=== PATIENT | male | born 1975 | race African-American/Black ===

== ENCOUNTER 2024-01-28 06:29 | Day surgery (SDC) | payer MEDICAID ==
[~2024-01-28] VITALS: Ht 185.4 cm; Wt 88.5 kg
[~2024-01-28 06:29] MED LIST: ALBU18HF2 IH; AMLO10TA80 PO; HYDR25TA PO; IBUP-2030 PO; METH-653 PO; POTA10CA93 PO
[2024-01-28] MEDS ORDERED: CYCLOPENTOLATE HCL 1% OPHTH DROPS 2ML LEFTEYE ONE (06:30)
[2024-01-28] MEDS ORDERED: PHENYLEPHRINE HCL 10% OPHTH DROPS 5ML LEFTEYE ONE (06:30)
[2024-01-28] MEDS ORDERED: TROPICAMIDE 1% OPHTH DROPS 15ML LEFTEYE ONE (06:30)
[2024-01-28] MEDS ORDERED: HYALURONATE SODIUM 10MG/ML 0.85ML SYRINGE IO ONE (07:27)
[2024-01-28] MEDS ORDERED: TRYPAN BLUE 0.5 ML DISP.SYRIN IO ONE (07:30)
[2024-01-28 07:37] LABS: BASOPHILS % 0.9 % (0.0-2.0); DIFFERENTIAL COMMENT 0; EOSINOPHILS % 1.5 % (0.0-5.0); HEMATOCRIT. 38.1 % (42.0-52.0); HEMOGLOBIN. 12.6 g/dL (14.0-18.0); LYMPHOCYTES % 22.9 % (20.0-50.0); MEAN CORPUSCULAR HEMOGLOBIN 33.2 pg (28.0-32.0); MEAN CORPUSCULAR HGB CONC 33.2 g/dL (31.0-37.0); MEAN CORPUSCULAR VOLUME 100.2 fL (80.0-94.0); MEAN PLATELET VOLUME 7.8 fl (7.4-10.4); NEUTROPHILS % 66.7 % (40.0-76.0); PLATELET 366 x1000/uL (130-400); RED CELL DISTRIBUTION WIDTH 16.2 % (11.6-14.6); WHITE BLOOD COUNT 6.4 x1000/uL (4.5-11.0)
[2024-01-28] MEDS: LACTATED RINGERS 1,000 ML IV SCH (07:41)
[2024-01-28] MEDS ORDERED: MIDAZOLAM HCL 2 MG/2 ML VIAL ONE (07:47)
[2024-01-28] MEDS ORDERED: PROPOFOL 200MG/20ML VIAL IV ONE (07:47)
[2024-01-28] MEDS ORDERED: FENTANYL CITRATE/PF 50MCG/ML 2ML VIAL ONE (07:47)
[2024-01-28] MEDS ORDERED: ONDANSETRON HCL 4MG/2ML INJ IV PRN (08:15)
[2024-01-28] MEDS ORDERED: LABETALOL 5MG/ML 4ML INJ IV PRN (08:15)
[2024-01-28] MEDS ORDERED: HYDROMORPHONE HCL/PF 1MG/ML INJ IV PRN (08:15)
[2024-01-28] MEDS ORDERED: MEPERIDINE HCL/PF 25MG/ML CPJ IV PRN (08:15)
[2024-01-28] MEDS ORDERED: BALANCED SALT IRRIG SOLN COMB1 500ML OP SCH (08:30)
[2024-01-28] MEDS ORDERED: BALANCED SALT IRRIG SOLN 15ML ONE (09:00)
== END 2024-01-28 10:40 | disposition home or self-care (01) ==
LOC: OR 06:29
PROVIDERS: ATTEND Ophthalmology
DX: H25.89 Other age-related cataract (principal); I10 Essential (primary) hypertension; F41.9 Anxiety disorder, unspecified; Z79.899 Other long term (current) drug therapy; Z98.890 Other specified postprocedural states
CPT/HCPCS: 66984; 85025; 36415; 93005; Q9957; J3010; J3490 ×2; J2250; J2704; V2632

== ENCOUNTER → 2024-04-07 | Day surgery (SDC) | payer MEDICAID ==
[~2024-04-07] VITALS: Ht 185.4 cm; Wt 88.5 kg
[~2024-04-07] MED LIST changes: +BALANCED SALT IRRIG SOLN 15ML ONE; +BALANCED SALT IRRIG SOLN COMB1 500ML OP ONE; +CYCLOPENTOLATE HCL 1% OPHTH DROPS 2ML RIGHTEYE NR; +FENTANYL CITRATE/PF 50MCG/ML 2ML VIAL ONE; +HYALURONATE SODIUM 10MG/ML 0.55ML SYRINGE IO ONE; +HYALURONATE SODIUM 10MG/ML 0.85ML SYRINGE IO ONE; +HYDRALAZINE 20MG/ML VIAL IV NR; +HYDRALAZINE 20MG/ML VIAL ONE; +HYDROMORPHONE HCL/PF 1MG/ML INJ IV PRN; +LABETALOL 5MG/ML 20ML VIAL IV ONE; +LACTATED RINGERS 1,000 ML IV SCH; +MEPERIDINE HCL/PF 25MG/ML CPJ IV PRN; +MIDAZOLAM HCL 2 MG/2 ML VIAL ONE; +ONDANSETRON HCL 4MG/2ML INJ IV PRN; +PHENYLEPHRINE HCL 10% OPHTH DROPS 5ML RIGHTEYE NR; +TROPICAMIDE 1% OPHTH DROPS 15ML RIGHTEYE NR
[2024-04-07 07:55] LABS: CHLORIDE 91 mEq/L (98-107); POTASSIUM 3.4 mEq/L (3.5-5.1); SODIUM 132 mEq/L (136-145)
[2024-04-07 07:56] LABS: CARBON DIOXIDE 30 mEq/L (21-32)
[2024-04-07 07:57] LABS: CALCIUM 9.6 mg/dL (8.7-10.4)
[2024-04-07 08:01] LABS: BASOPHILS % 0.6 % (0.0-2.0); CREATININE 0.8 mg/dL (0.6-1.3); DIFFERENTIAL COMMENT 0; EOSINOPHILS % 0.3 % (0.0-5.0); GLUCOSE 78 mg/dL (70-105); LYMPHOCYTES % 16.7 % (20.0-50.0); MEAN CORPUSCULAR HEMOGLOBIN 35.3 pg (28.0-32.0); MEAN CORPUSCULAR HGB CONC 34.2 g/dL (31.0-37.0); MEAN CORPUSCULAR VOLUME 103.1 fL (80.0-94.0); MEAN PLATELET VOLUME 8.1 fl (7.4-10.4); MONOCYTES % 9.9 % (2.0-8.0); NEUTROPHILS % 72.5 % (40.0-76.0); PLATELET 207 x1000/uL (130-400); RED BLOOD CELL COUNT 3.69 mill/uL (4.7-6.1); RED CELL DISTRIBUTION WIDTH 19.9 % (11.6-14.6); UREA NITROGEN BLOOD 6 mg/dL (9-23); WHITE BLOOD COUNT 5.1 x1000/uL (4.5-11.0)
[2024-04-07] MEDS: HYDRALAZINE 20MG/ML VIAL IV NR (11:42)
[2024-04-07] MEDS: LABETALOL 5MG/ML 4ML INJ IV PRN (12:55)
[2024-04-07 13:02] VITALS: BP 155/110
[2024-04-07] MEDS: LABETALOL 5MG/ML 4ML INJ IV NR (13:02)
== END | disposition home or self-care (01) ==
LOC: OR 06:34
PROVIDERS: ATTEND Ophthalmology
DX: H25.21 Age-related cataract, morgagnian type, right eye (principal); I49.3 Ventricular premature depolarization; I10 Essential (primary) hypertension; F41.9 Anxiety disorder, unspecified; I51.7 Cardiomegaly; Z79.899 Other long term (current) drug therapy; Z98.890 Other specified postprocedural states
CPT/HCPCS: 66982; 80048; 85025; 36415; 93005; J3010; J3490 ×6; J0360; J2250; V2632